=== PATIENT | male | born 1955 | race Caucasian/White ===

== ENCOUNTER 2024-03-27 23:40 | Inpatient (IN) | payer MEDICARE ==
[2024-03-28] MEDS: Albuterol/Ipratropium 3.0-0.5 MG/3 ML Neb Soln NEB ONE (00:35)
[2024-03-28 00:43] LABS: BASOPHILS ABSOLUTE AUTO 0.04 K/uL (0.00-0.10); BASOPHILS PERCENT AUTO 0.3 % (0.1-1.3); EOSINOPHILS ABSOLUTE AUTO 0.23 K/uL (0.00-0.40); EOSINOPHILS PERCENT AUTO 1.5 % (0.0-5.4); HEMATOCRIT 47.8 % (38.4-49.7); HEMOGLOBIN 14.9 g/dL (12.9-16.9); IMMATURE GRAN ABSOLUTE AUTO 0.07 K/uL (0.00-0.23); IMMATURE GRAN PERCENT AUTO 0.4 % (0.0-0.7); LYMPHOCYTES ABSOLUTE AUTO 0.41 K/uL (0.8-3.3); LYMPHOCYTES PERCENT AUTO 2.6 % (11.4-47.7); MEAN CORPUSCULAR HEMOGLOBIN 31.6 pg (31.6-35.5); MEAN CORPUSCULAR HGB CONC 31.2 g/dL (31.6-35.5); MEAN CORPUSCULAR VOLUME 101.3 fL (81.4-99.0); MONOCYTES ABSOLUTE AUTO 0.87 K/uL (0.20-0.90); MONOCYTES PERCENT AUTO 5.6 % (3.3-12.6); NEUTROPHILS ABSOLUTE AUTO 14.03 K/uL (1.0-7.6); NEUTROPHILS PERCENT AUTO 89.6 % (40.0-78.1); PLATELET COUNT,PLT 262 K/uL (130-375); RED BLOOD CELL COUNT 4.72 M/uL (4.14-5.76); WHITE BLOOD CELL COUNT,WBC 15.7 K/uL (3.2-11.0)
[2024-03-28 00:44] LABS: BASE EXCESS VENOUS 1.1 mm/L; BICARBONATE,VENOUS 30.4 mmol/L; CARBOXYHEMOGLOBIN 1.2 % (0.0-1.6); METHEMOGLOBIN 0.9 %; O2 SATURATION VENOUS 32.8; OXYHEMOGLOBIN 32.1 %; PCO2 VENOUS 70.9 mm/Hg; PH,VENOUS 7.254 (7.350-7.450); TOTAL HEMOGLOBIN 15.4 g/dL (13.5-18.0)
[2024-03-28 00:53] LABS: PO2 VENOUS 24.8 mm/Hg
[2024-03-28] MEDS: Ondansetron 4 MG/2 ML SDV IVPUSH ONE (01:03)
[2024-03-28 01:05] LABS: ANION GAP 8.4 mmol/L (5.0-14.0); BLOOD UREA NITROGEN,BUN 16 mg/dL (7-18); CARBON DIOXIDE,CO2 31 mmol/L (21-32); CHLORIDE,CL 103 mmol/L (100-108); CREATININE 0.8 mg/dL (0.8-1.3); ESTIMATED GFR 98 mL/min (>60); GLUCOSE RANDOM 141 mg/dL (74-106); POTASSIUM,K 4.9 mmol/L (3.6-5.2); SODIUM,NA 142 mmol/L (140-148)
[2024-03-28 01:11] LABS: LACTIC ACID 2.7 mmol/L (0.4-2.0)
[2024-03-28 01:20] LABS: C-REACTIVE PROTEIN < 0.50 mg/dL (<0.50)
[2024-03-28] MEDS: Doxycycline 100 MG Cap PO ONE (01:30)
[2024-03-28] MEDS: methylPREDNISolone Sodium Succinate 125 MG/2 ML SDV IVPUSH ONE (01:30)
[2024-03-28] MEDS ORDERED: oxyCODONE 5 MG Tab PO PRN (01:53)
[2024-03-28] MEDS ORDERED: Nitroglycerin 0.4 MG Tab.SL SL PRN (01:53)
[2024-03-28] MEDS ORDERED: Morphine 2 MG/ML SYRINGE IVPUSH PRN (01:53)
[2024-03-28] MEDS ORDERED: Naloxone 0.4 MG/ML SDV IVPUSH PRN (01:53)
[2024-03-28] MEDS ORDERED: Ondansetron 4 MG/2 ML SDV IV PRN (01:53)
[2024-03-28] MEDS ORDERED: Melatonin 3 MG Tab PO PRN (02:35)
[2024-03-28] MEDS: cefTRIAXone 2 GM in Sodium Chloride 0.9% 50 ML IV SCH (02:50)
[2024-03-28] MEDS: Acetaminophen 325 MG Tab PO PRN (02:50)
[2024-03-28] MEDS: Albuterol/Ipratropium 3.0-0.5 MG/3 ML Neb Soln NEB SCH ×2 (05:09→10:34)
[2024-03-28] MEDS: methylPREDNISolone Sodium Succinate 40 MG/1 ML SDV IVPUSH SCH (05:10)
[2024-03-28] MEDS: Sodium Chloride 0.9% 1,000 ML IV SCH (05:12)
[2024-03-28] MEDS ORDERED: Pantoprazole 40 MG Vial IVPUSH SCH (07:30)
[2024-03-28] MEDS: Rosuvastatin 10 MG Tab PO SCH (09:00)
[2024-03-28] MEDS: Pantoprazole 40 MG Tab.CR PO SCH (09:00)
[2024-03-28] MEDS: Enoxaparin 40 MG/0.4 ML Syringe SUBCUT SCH (09:01)
[2024-03-28] MEDS: Metoprolol Succinate 25 MG Tab.ER PO SCH (09:01)
[2024-03-28 09:14] LABS: APPEARANCE,URINE CLEAR (CLEAR); BILIRUBIN,URINE NEGATIVE (NEGATIVE); COLOR,URINE YELLOW (YELLOW); GLUCOSE,URINE NEGATIVE (NEGATIVE); KETONES,URINE NEGATIVE (NEGATIVE); LEUKOCYTE ESTERASE,URINE NEGATIVE (NEGATIVE); NITRITE,URINE NEGATIVE (NEGATIVE); OCCULT BLOOD,URINE NEGATIVE (NEGATIVE); PH,URINE 5.5 (5.0-8.0); PROTEIN,URINE NEGATIVE (NEGATIVE); UROBILINOGEN,URINE 0.2 EU/dL (0.2-1.0)
[2024-03-28 09:23] LABS: BACTERIA,URINE RARE; EPITHELIAL CELLS,URINE NOT SEEN; RBC,URINE 0-5 (0-5); WBC,URINE 0-5 (0-5)
[2024-03-28 09:24] LABS: AMORPHOUS SEDIMENT,URINE NOT SEEN; MUCUS,URINE MODERATE
[2024-03-28] MEDS ORDERED: Tiotropium Bromide 4 GM Inhalation Spray (2.5mcg/1 dose; 10 doses) INH SCH (11:00)
[2024-03-28] MEDS: Doxycycline 100 MG in Sodium Chloride 0.9% 100 ML IV SCH (11:03)
[2024-03-28] MEDS: Budesonide 0.5 MG/2 ML Neb Susp INH SCH (11:32)
[2024-03-28] MEDS: Arformoterol 15 MCG/2 ML Neb Soln INH SCH (11:34)
[2024-03-28] MEDS: Tiotropium Bromide 4 GM Inhalation Spray (2.5mcg/1 dose; 10 doses) INH SCH (11:48)
[2024-03-28] MEDS ORDERED: Albuterol 0.083% 2.5 MG/3 ML Neb Soln NEB PRN (12:01)
[2024-03-28] MEDS: Ondansetron 4 MG Tab.DIS PO PRN (15:30)
[2024-03-28] MEDS: Aspirin 81 MG Tab.Chew PO SCH (15:56)
[2024-03-28] MEDS: Montelukast 10 MG Tab PO SCH (20:42)
[2024-03-28] MEDS ORDERED: cefTRIAXone 2 GM in Sodium Chloride 0.9% 50 ML IV SCH (22:00)
[2024-03-29 05:58] LABS: HEMATOCRIT 37.3 % (38.4-49.7); HEMOGLOBIN 11.9 g/dL (12.9-16.9); IMMATURE GRAN ABSOLUTE AUTO 0.03 K/uL (0.00-0.23); IMMATURE GRAN PERCENT AUTO 0.3 % (0.0-0.7); LYMPHOCYTES ABSOLUTE AUTO 0.54 K/uL (0.8-3.3); LYMPHOCYTES PERCENT AUTO 4.5 % (11.4-47.7); MEAN CORPUSCULAR HEMOGLOBIN 31.5 pg (31.6-35.5); MEAN CORPUSCULAR HGB CONC 31.9 g/dL (31.6-35.5); MEAN CORPUSCULAR VOLUME 98.7 fL (81.4-99.0); MONOCYTES ABSOLUTE AUTO 1.07 K/uL (0.20-0.90); MONOCYTES PERCENT AUTO 8.9 % (3.3-12.6); NEUTROPHILS ABSOLUTE AUTO 10.36 K/uL (1.0-7.6); NEUTROPHILS PERCENT AUTO 86.3 % (40.0-78.1); PLATELET COUNT,PLT 200 K/uL (130-375); RED BLOOD CELL COUNT 3.78 M/uL (4.14-5.76)
[2024-03-29 06:09] LABS: ANION GAP 9.6 mmol/L (5.0-14.0); CALCIUM 8.4 mg/dL (8.5-10.1); CREATININE 0.8 mg/dL (0.8-1.3); EST CRCL DRUG DOSING (CG) 87.88 mL/min; POTASSIUM,K 4.1 mmol/L (3.6-5.2)
[2024-03-29] MEDS: predniSONE 20 MG Tab PO SCH (07:22)
[2024-03-29] MEDS: Albuterol 6.7 GM Inhaler INH PRN (17:20)
[2024-03-30 05:43] LABS: HEMATOCRIT 36.1 % (38.4-49.7); HEMOGLOBIN 11.6 g/dL (12.9-16.9); MEAN CORPUSCULAR HEMOGLOBIN 31.6 pg (31.6-35.5); MEAN CORPUSCULAR HGB CONC 32.1 g/dL (31.6-35.5); MEAN CORPUSCULAR VOLUME 98.4 fL (81.4-99.0); RED BLOOD CELL COUNT 3.67 M/uL (4.14-5.76); WHITE BLOOD CELL COUNT,WBC 12.3 K/uL (3.2-11.0)
[2024-03-30 05:59] LABS: CALCIUM 7.9 mg/dL (8.5-10.1); CREATININE 0.8 mg/dL (0.8-1.3); EST CRCL DRUG DOSING (CG) 87.88 mL/min; POTASSIUM,K 3.4 mmol/L (3.6-5.2)
[2024-03-30 06:04] LABS: ANION GAP 11.4 mmol/L (5.0-14.0)
[2024-03-30] MEDS: Potassium Chloride 20 MEQ Tab.ER PO ONE (08:29)
== END 2024-03-30 15:20 | disposition home or self-care (01) | DRG 392 ==
LOC: JP.ED 23:40 → JP.MS 03-28 01:20
PROVIDERS: ADMIT Nurse Practitioner; ATTEND Hospitalist
PROC: 4A033R1 Measurement of Arterial Saturation, Peripheral, Percutaneous Approach (ICD-10-PCS; principal; 2024-03-28)
DX: K52.9 Noninfective gastroenteritis and colitis, unspecified (principal); J44.1 Chronic obstructive pulmonary disease with (acute) exacerbation; F17.210 Nicotine dependence, cigarettes, uncomplicated; Z99.81 Dependence on supplemental oxygen; Z79.82 Long term (current) use of aspirin; Z79.51 Long term (current) use of inhaled steroids; Z79.899 Other long term (current) drug therapy; Z79.52 Long term (current) use of systemic steroids
CPT/HCPCS: 36415; 71045 ×2; 80048; 82803; 83605; 85025; 86140; 94640; 96374; 99285; J2405; 81001; 85027; 87040; 87186; 87428-QW; 99222; 99232; 99238; A9270-GY; J0696; J1650; J2919; J3490; J7030; J7512; J7605; J7620; Q0162

== ENCOUNTER 2024-04-10 08:02 | Emergency (ER) | payer MEDICARE ==
[2024-04-10] MEDS ORDERED: Sodium Chloride 0.9% 1,000 ML IV ONE (08:04)
[2024-04-10] MEDS ORDERED: methylPREDNISolone Sod Succ 1,000 MG in Dextrose 5% in Water 100 ML IV ONE (08:05)
[2024-04-10] MEDS: methylPREDNISolone Sodium Succinate 125 MG/2 ML SDV IVPUSH ONE (08:23)
[2024-04-10 08:31] LABS: BASOPHILS ABSOLUTE AUTO 0.07 K/uL (0.00-0.10); BASOPHILS PERCENT AUTO 0.8 % (0.1-1.3); EOSINOPHILS ABSOLUTE AUTO 0.15 K/uL (0.00-0.40); EOSINOPHILS PERCENT AUTO 1.7 % (0.0-5.4); HEMATOCRIT 42.8 % (38.4-49.7); HEMOGLOBIN 13.5 g/dL (12.9-16.9); IMMATURE GRAN ABSOLUTE AUTO 0.07 K/uL (0.00-0.23); IMMATURE GRAN PERCENT AUTO 0.8 % (0.0-0.7); LYMPHOCYTES ABSOLUTE AUTO 0.74 K/uL (0.8-3.3); LYMPHOCYTES PERCENT AUTO 8.4 % (11.4-47.7); MEAN CORPUSCULAR HEMOGLOBIN 31.8 pg (31.6-35.5); MEAN CORPUSCULAR HGB CONC 31.5 g/dL (31.6-35.5); MEAN CORPUSCULAR VOLUME 100.9 fL (81.4-99.0); MONOCYTES ABSOLUTE AUTO 1.16 K/uL (0.20-0.90); MONOCYTES PERCENT AUTO 13.1 % (3.3-12.6); NEUTROPHILS ABSOLUTE AUTO 6.64 K/uL (1.0-7.6); NEUTROPHILS PERCENT AUTO 75.2 % (40.0-78.1); PLATELET COUNT,PLT 181 K/uL (130-375); RED BLOOD CELL COUNT 4.24 M/uL (4.14-5.76); WHITE BLOOD CELL COUNT,WBC 8.8 K/uL (3.2-11.0)
[2024-04-10] MEDS: Sodium Chloride 0.9% 1,000 ML IV ONE (08:32)
[2024-04-10 09:37] LABS: ASPARTATE AMNIOTRANSFERASE,AST 40 U/L (15-37); CREATININE 0.8 mg/dL (0.8-1.3); EST CRCL DRUG DOSING (CG) 87.88 mL/min; ESTIMATED GFR 98 mL/min (>60)
[2024-04-10] MEDS: Albuterol/Ipratropium 3.0-0.5 MG/3 ML Neb Soln NEB ONE ×2 (09:42→11:30)
[2024-04-10 10:17] LABS: A/G RATIO 1.4 (1.2-2.2); ALANINE AMINOTRANSFERASE,ALT 106 U/L (12-78); ALKALINE PHOSPHATASE 81 U/L (46-116); BLOOD UREA NITROGEN,BUN 12 mg/dL (7-18); C-REACTIVE PROTEIN 0.52 mg/dL (<0.50); CALCIUM 8.9 mg/dL (8.5-10.1); CARBON DIOXIDE,CO2 29 mmol/L (21-32); CHLORIDE,CL 102 mmol/L (100-108); GLUCOSE RANDOM 103 mg/dL (74-106); POTASSIUM,K 4.3 mmol/L (3.6-5.2); PRO B-TYPE NATRIUR PEPT,BNPPRO 28 pg/mL (5-125); PROTEIN TOTAL,TP 6.9 g/dL (6.4-8.2); SODIUM,NA 139 mmol/L (140-148)
[2024-04-10 10:26] LABS: ANION GAP 12.3 mmol/L (5.0-14.0)
[2024-04-10] MEDS: Montelukast 10 MG Tab PO ONE (11:29)
[2024-04-10] MEDS: Budesonide 0.5 MG/2 ML Neb Susp NEB ONE (11:30)
[2024-04-10] MEDS: Formoterol 12 MCG Inhalant Cap Kit of 12 INH SCH (13:25)
== END 2024-04-10 14:31 | disposition critical access hospital (66) ==
LOC: JP.ED 08:02
DX: J44.1 Chronic obstructive pulmonary disease with (acute) exacerbation (principal); E78.00 Pure hypercholesterolemia, unspecified; I25.10 Atherosclerotic heart disease of native coronary artery without angina pectoris; Z79.51 Long term (current) use of inhaled steroids; Z79.82 Long term (current) use of aspirin; Z79.899 Other long term (current) drug therapy; Z90.49 Acquired absence of other specified parts of digestive tract
CPT/HCPCS: 36415; 71045; 80053; 83605; 83735; 83880; 84145; 84484; 85025; 86140; 87040; 87428; 93005; 94640; 96374; 99285; A9270; J2919; J7620